=== PATIENT | female | born 2000 | race Caucasian/White ===

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

== ENCOUNTER 2021-03-08 14:07 | Outpatient (CLI) | payer MEDICAID ==
[~2021-03-08] VITALS: Ht 152.4 cm; Wt 89.5 kg
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
[2021-03-08 15:15] VITALS: BP 138/72; PULSE 86; TEMP 98.2
[2021-03-08 16:20] VITALS: BP 131/64; PULSE 71
--- NOTE | 2021-03-08 16:20 | NUR ---
Cat 1 FHR strip. Rhogam given. Denies increase of pain. VSS. Taken off monitors. D/c instructions given. Will keep follow up appointment. No questions or concerns.
== END 2021-03-08 16:30 | disposition home or self-care (01) ==
LOC: LDRO 14:07 → LDR 14:15 → LDRO 16:30
DX: O26.899 Other specified pregnancy related conditions, unspecified trimester (principal); R10.9 Unspecified abdominal pain; Z3A.00 Weeks of gestation of pregnancy not specified
CPT/HCPCS: OP; J2791

== ENCOUNTER 2021-03-20 04:31 | Inpatient (IN) | payer MEDICAID ==
[2021-03-20] VITALS (51 sets, daily range): BP systolic 116–165; BP diastolic 57–91; PULSE 85–114; TEMP 97.2–98.9
[~2021-03-20] VITALS: Ht 152.4 cm; Wt 92.7 kg
--- NOTE | 2021-03-20 04:45 | NUR ---
PT ARRIVED TO UNIT WITH FOB AND FOB'S MOTHER VIA WHEELCHAIR WITH COMPLAINTS OF CONTRACTIONS. PT ORIENTED TO ROOM, CHANGED INTO GOWN, EFMX2 APPLIED, VS OBTAINED, SVE PERFORMED.
[2021-03-20 06:04] LABS: HEMOGLOBIN 11.2 g/dl (12.5-16.0); MEAN CELL VOLUME 84 fl (80.0-100.0); MEAN CORPUSCULAR HEMOGLOBIN 28 pg (27.0-31.0); MEAN CORPUSCULAR HGB CONC 33 g/dl (33.0-37.0); MEAN PLATELET VOLUME 9.3 fl (7.4-10.4); PLATELET COUNT 402 K/mm3 (130-400); RED BLOOD COUNT 4.07 M/mm3 (4.10-5.30); REDCELL DISTRIBUTION WIDTH-CV 14.4 % (11.5-14.5)
[2021-03-20 06:11] LABS: HEMATOCRIT 34.1 % (37.0-47.0)
--- NOTE | 2021-03-20 06:20 | NUR ---
0605-PT SITTING UP AT BEDSIDE FOR EPIDURAL PLACEMENT. 0607- Romina ANDREW CRNA IN ROOM. 0616- TEST DOSE GIVEN BY Romina ANDREW CRNA, PT TEARFUL BUT TOLERATED WELL. 0620- PT REPOSITIONED INTO LEFT WEDGE.
[2021-03-20 06:37] LABS: BAND 7 % (0-10); EOSINOPHIL 1 % (0-4); LYMPHOCYTE 16 % (20.0-51.0); NEUTROPHILS 69 % (42.0-75.2); PLATELET ESTIMATE NORMAL (NORMAL)
--- NOTE | 2021-03-20 06:45 | NUR ---
Rests in bed after epidural placement. Family at bedside. Denies any needs at this time.
--- NOTE | 2021-03-20 07:10 | NUR ---
Ace catheter placed per sterile technique. Small amount of clear yellow urine noted.
--- NOTE | 2021-03-20 07:15 | NUR ---
Pitocin started at 2 kayy units as ordered and per protocol.
[2021-03-20 09:17] LABS: ALBUMIN 2.5 gm/dL (3.5-5.0); BILIRUBIN,TOTAL 0.6 mg/dL (0.2-1.2); CALCIUM 9.1 mg/dL (8.4-10.2); CREATININE, serum 0.69 mg/dL (0.57-1.11); POTASSIUM 3.6 mmol/L (3.5-4.5); TOTAL PROTEIN 6.2 gm/dL (6.2-8.1)
--- NOTE | 2021-03-20 09:30 | NUR ---
Dr. Syed here, visits with patient and family. [address] Syed, moderate amount of fluid noted. Pad changed, belem-care done.
--- NOTE | 2021-03-20 09:45 | NUR ---
Unable to trace contractions at this time. Rafael Hernandez changed out.
--- NOTE | 2021-03-20 11:20 | NUR ---
Called to room. Having emisis. Offered zofran, patient accepts. 1129 Zofran 4 mg iv given as ordered.
--- NOTE | 2021-03-20 12:15 | NUR ---
Starts pushing with contractions. Ace catheter taken out.
--- NOTE | 2021-03-20 14:30 | NUR ---
This nurse went to lunch. Nurse Quinteros watched the monitor strip.
--- NOTE | 2021-03-20 15:15 | NUR ---
Continues to push with contractions. States getting tired.
--- NOTE | 2021-03-20 15:30 | NUR ---
Dr. Syed here, pushes with patient. Visits with patient about verses using forceps or vaccum. He lets patient know that we will continue pushing for now.
--- NOTE | 2021-03-20 15:45 | NUR ---
1550 Straight cath done per sterile technique. Small amount of medium yellow color urine. Jeana-care given.
--- NOTE | 2021-03-20 16:00 | NUR ---
Patient states needs to rest for a few minutes. Rests eyes for fifteen.
--- NOTE | 2021-03-20 16:15 | NUR ---
Starts pushing with contractions. Does well. Family at bedside.
--- NOTE | 2021-03-20 16:30 | NUR ---
Dr. Syed in room. [address] Syed. Pushes with contractions. No pop offs noted. 1646 Spontaneous delivery of baby boy by Dr. Syed. 1651 Spontaneous delivery of placenta by Dr. Syed. Pitocin started at 333ccs an hour as ordered and per policy.
--- NOTE | 2021-03-20 17:25 | NUR ---
Rests in bed, alert. Family at bedside. Denies any needs at this time.
--- NOTE | 2021-03-20 18:30 | NUR ---
1830 IV TO INT. UP AND AMB TO BR WITH ASSIST AND VALDO WELL. UNABLE TO VOID. PERICARE DONE AND TO 215 PER W/C. 1900 UP TO BR ON OWN AND VOIDED 300CC. BECAME HOT AND NAUSEATED WHILE UP. INSTRUCTED TO LIE DOWN AND CALL FOR ASSIST NEXT TIME NEEDS TO GET UP.
[2021-03-21 00:30] VITALS: BP 116/82; PULSE 82; TEMP 98.1
[2021-03-21 04:30] VITALS: BP 136/95; PULSE 80; TEMP 98.2
[2021-03-21 06:52] LABS: HEMOGLOBIN 9.5 g/dl (12.5-16.0)
[2021-03-21 06:53] LABS: HEMATOCRIT 29.5 % (37.0-47.0)
[2021-03-21 08:20] VITALS: BP 110/63; PULSE 73; TEMP 97.5
--- NOTE | 2021-03-21 09:14 | NUR ---
Initial visit attempt; Family resting, Weight Trainer left card of congratulations and information regarding the availability of spiritual care at our hospital.
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
[2021-03-21 13:15] VITALS: BP 129/75; PULSE 81; TEMP 98.1
[2021-03-21 17:40] VITALS: BP 132/75; PULSE 80; TEMP 97.5
[2021-03-21 20:00] VITALS: BP 138/78; PULSE 69; TEMP 97.7
[2021-03-22 09:00] VITALS: BP 144/87; PULSE 90; TEMP 98
[2021-03-22] MEDS ORDERED: IBU600 MG PO (12:01)
== END 2021-03-22 12:20 | disposition home or self-care (01) | DRG 807 ==
LOC: LDRO 04:31 → LDR 05:10 → OB 05:10
PROVIDERS: Obstetrics & Gynecology; ADMIT Obstetrics & Gynecology
PROC: 10D07Z6 Extraction of Products of Conception, Vacuum, Via Natural or Artificial Opening (ICD-10-PCS; principal; 2021-03-20)
PROC: 0KQM0ZZ Repair Perineum Muscle, Open Approach (ICD-10-PCS; 2021-03-20)
DX: O13.4 Gestational [pregnancy-induced] hypertension without significant proteinuria, complicating childbirth (principal); Z37.0 Single live birth; O70.1 Second degree perineal laceration during delivery; O75.81 Maternal exhaustion complicating labor and delivery; O60.14X0 Preterm labor third trimester with preterm delivery third trimester, not applicable or unspecified; O99.52 Diseases of the respiratory system complicating childbirth; Z3A.36 36 weeks gestation of pregnancy
CPT/HCPCS: J2400; J2405; J2590; J2791; J7120

== ENCOUNTER 2024-04-14 13:25 | Emergency (ER) | payer MEDICAID ==
[~2024-04-14] VITALS: Ht 154.9 cm; Wt 71.4 kg
[~2024-04-14 13:25] MED LIST changes: +IBU600 MG PO
[2024-04-14 13:32] VITALS: TEMP 98.1
[2024-04-14] MEDS ORDERED: Morphine 4 MG/ML VIAL IV ONE (14:45)
[2024-04-14] MEDS ORDERED: LR 1,000 ML IV ONE (14:45)
[2024-04-14] MEDS ORDERED: Ondansetron 4 MG/2 ML VIAL IV ONE (14:45)
[2024-04-14 14:59] LABS: BASO % 0.3 % (0.0-2.0); EOS # 0.2 K/mm3 (0.0-0.7); EOS % 1.4 % (0.0-4.0); GRAN # 8.2 K/mm3 (1.4-6.5); GRAN % 70.5 % (42.2-75.2); HEMATOCRIT 42.4 % (37.0-47.0); HEMOGLOBIN 14.2 g/dl (12.5-16.0); LYMPH # 2.4 K/mm3 (1.2-3.4); LYMPH % 20.9 % (20.0-51.0); MEAN CELL VOLUME 86 fl (80.0-100.0); MEAN CORPUSCULAR HEMOGLOBIN 29 pg (27-31); MEAN CORPUSCULAR HGB CONC 34 g/dl (33.0-37.0); MEAN PLATELET VOLUME 8.7 fl (7.4-10.4); MONO # 0.8 K/mm3 (0.1-0.6); MONO % 6.6 % (1.7-9.3); PLATELET COUNT 445 K/mm3 (130-400); RED BLOOD COUNT 4.95 M/mm3 (4.10-5.30); REDCELL DISTRIBUTION WIDTH-CV 12.5 % (11.5-14.5)
[2024-04-14 15:13] LABS: BILIRUBIN,TOTAL 1.1 mg/dL (0.2-1.2); CALCIUM 9.6 mg/dL (8.4-10.2); CREATININE, serum 0.87 mg/dL (0.57-1.11); POTASSIUM 3.6 mEq/L (3.5-4.5); TOTAL PROTEIN 7.6 g/dl (6.2-8.1)
[2024-04-14] MEDS ORDERED: Iohexol 300 - 100 ML VIAL IV ONE (15:18)
[2024-04-14] MEDS ORDERED: NS 100 ML IV SCH (15:18)
[2024-04-14 16:02] LABS: COLLECTION METHOD CLEAN CATCH
[2024-04-14 16:11] LABS: PH 5.5 (5.0-8.5); URINE BLOOD NEGATIVE (NEGATIVE); URINE COLOR YELLOW (YELLOW); URINE GLUCOSE NEGATIVE (NEGATIVE); URINE KETONE 2+ (NEGATIVE); URINE NITRATE NEGATIVE (NEGATIVE); URINE PROTEIN(semi-quant) NEGATIVE (NEGATIVE); URINE UROBILINOGEN 0.2 E.U/dL (0.2-1.0)
[2024-04-14 16:12] LABS: URINE APPEARANCE Clear (CLEAR/HAZY)
[2024-04-14 16:40] VITALS: BP 120/83; PULSE 70
== END 2024-04-14 16:40 | disposition home or self-care (01) ==
LOC: COL.ER 13:25
PROVIDERS: Emergency Medicine
DX: R10.9 Unspecified abdominal pain (principal)
CPT/HCPCS: J2270; J2405; J7120; Q9967